=== PATIENT | male | born 1935 | race Caucasian/White ===

== ENCOUNTER 2016-07-15 07:17 | Outpatient (CLI) | payer MEDICARE ==
--- NOTE | 2016-07-15 11:45 | Cat Scan Report ---
CT ABDOMEN AND PELVIS WITHOUT CONTRAST INDICATION: Malignant neoplasm of prostate. COMPARISON: None similar at this institution. FINDINGS: Noncontrast abdomen and pelvis CT performed. LUNG BASES: Minimal left coronary calcifications. Nonspecific distal esophageal wall thickening, not excluded for gastroesophageal reflux and/or hiatal hernia, amongst others. ABDOMEN: Please note that sensitivity to detect small visceral lesions is limited due to the absence of intravenous or oral contrast. At least 3 hepatic hypodensities/cysts superiorly in the right and left lobes, the largest approximately 1.8 x 0.9 cm on the left posteriorly, axial image 60, series 2. Numerous bilateral renal cortical predominantly hypodense lesions, the larger simple attenuation cysts with the largest 4.5 x 3.7 cm right interpolar cyst anteriorly demonstrating a small peripheral wall calcification as on axial image 108, series 2. No hydronephrosis. Small, 3-4 mm nonobstructing right upper renal pole calculus. No radiopaque gallstones, though slight sludge not excluded. Liver, spleen, pancreas, nonaneurysmal abdominal aorta with few atherosclerotic calcifications and IVC within normal limits. Slight hypodense adrenal prominence/possible hyperplasia bilaterally. No ascites or significant adenopathy. Nonopacified GI tract evaluation limited, though grossly nonobstructive. Mild to moderate colonic stool/possible constipation. PELVIS: Approximately 5 cm AP x 4.6 cm transverse prostate indents the bladder base and may be correlated for clinically and with PSA. Possible prior TURP changes as well. Few small pelvic phleboliths. Otherwise grossly unremarkable unenhanced urinary bladder and the rectosigmoid. No free fluid or significant adenopathy. Advanced multilevel lumbar spine degenerative changes, including severe disc narrowing, vacuum phenomenon and degenerative spurring and straightening/slight reversal of usual lumbar lordosis. Mild lumbar dextroscoliosis apex at L1-L2 as well. Mid to lower lumbar facet arthropathy. Right SI joint degenerative bridging. Possible osteopenia. Few other mild bony degenerative changes. CONCLUSION: 1. Enlarged prostate with possible prior TURP without definite evidence of metastatic disease on this unenhanced exam. 2. Various other incidental findings, including distal esophageal thickening, hepatic and renal hypodensities/cysts and advanced multilevel lumbar spondylosis, amongst others, as above. Thank you for the opportunity to participate in this patient's care.
--- NOTE | 2016-07-15 11:58 | Nuclear Medicine Report ---
BONE SCAN: History: Malignant neoplasm of prostate. After injection of isotope, gamma camera imaging of the bony system was done. There is slightly heterogeneous uptake of the radiotracer in the lumbar spine at approximate levels of L2 and L4. This appears to correlate with severe degenerative changes and scoliosis in the lumbar region. No blastic bony lesions are identified on CT abdomen pelvis performed the same day. There is abnormal bony uptake in the remainder of the skeletal structures. No definite metastatic pattern is appreciated. IMPRESSION: Probably negative bone scan. There is degenerative uptake in the lumbar spine as described. No definite findings of metastatic disease to the bones.
== END 2016-07-15 07:18 | disposition home or self-care (01) ==
LOC: CT 07:17
PROVIDERS: ATTEND Urology
DX: C61 Malignant neoplasm of prostate (principal); I25.10 Atherosclerotic heart disease of native coronary artery without angina pectoris; N20.0 Calculus of kidney; I70.0 Atherosclerosis of aorta; I87.8 Other specified disorders of veins; M47.896 Other spondylosis, lumbar region; M41.86 Other forms of scoliosis, lumbar region; M12.88 Other specific arthropathies, not elsewhere classified, other specified site; N40.0 Benign prostatic hyperplasia without lower urinary tract symptoms; K76.89 Other specified diseases of liver; N28.1 Cyst of kidney, acquired; N28.89 Other specified disorders of kidney and ureter
CPT/HCPCS: 74176; 78306; A9503